=== PATIENT | male | born 1990 | race African-American/Black ===

== ENCOUNTER 2022-06-23 16:51 | Emergency (ER) | payer SELFPAY ==
[~2022-06-23] VITALS: Ht 180.3 cm; Wt 147.7 kg
[2022-06-23 16:59] VITALS: BP 132/75
== END 2022-06-23 20:30 | disposition left against medical advice (07) ==
LOC: EMS 16:51
DX: Z53.21 Procedure and treatment not carried out due to patient leaving prior to being seen by health care provider (principal)